=== PATIENT | female | born 1965 | race Caucasian/White ===

== ENCOUNTER → 2016-09-04 | Outpatient (CLI) | payer OTHER ==
[~2016-09-04] MED LIST: ALLEGRA60 MG PO; ATIVAN1 MG PO; CORGARD40 MG PO; LORAZEPAM; SYNTHROID75 MCG PO; TENORMIN50 MG PO; WELLBUTRIN
== END | disposition home or self-care (01) ==
LOC: NUC 07:58
DX: R10.11 Right upper quadrant pain (principal); R11.0 Nausea
CPT/HCPCS: 78226; A9537

== ENCOUNTER → 2017-08-29 | Outpatient (CLI) | payer OTHER ==
[~2017-08-29] MED LIST changes: +ALAWAY10 ML BOTH EYES; +ALLEGRA-D 241 TABLET PO; +ATIVAN0.5 MG PO; +BENTYL10 MG PO; +FLONASE16 G1 BOTH NARES; +HYDROCHLOROTHIA25 MG PO; +SELENIUM200 MCG PO; +VITAMIN D34000 UNIT PO
== END | disposition home or self-care (01) ==
LOC: CDC 09:54
DX: Z01.810 Encounter for preprocedural cardiovascular examination (principal); K81.1 Chronic cholecystitis; R94.31 Abnormal electrocardiogram [ECG] [EKG]
CPT/HCPCS: 93000

== ENCOUNTER 2017-09-05 12:14 | Day surgery (SDC) | payer OTHER ==
[~2017-09-05] VITALS: Ht 177.8 cm; Wt 80.7 kg
[2017-09-05 12:57] VITALS: BP 130/70
[2017-09-05] MEDS ORDERED: NORCO 5/3251 TABLET PO (18:13)
[2017-09-05 19:45] VITALS: BP 144/80
[2017-09-05 20:45] VITALS: BP 138/80
[2017-09-05 21:38] VITALS: BP 135/82
== END 2017-09-05 22:05 | disposition home or self-care (01) ==
LOC: SDC → 2SOUTH 21:27 → ENRESERV 21:31 → CANRESERV 21:42 → ENRESERV 21:42 → 2SOUTH 22:05
PROC: BF131ZZ Fluoroscopy of Gallbladder and Bile Ducts using Low Osmolar Contrast (ICD-10-PCS; principal; 2017-09-05)
PROC: 0FT44ZZ Resection of Gallbladder, Percutaneous Endoscopic Approach (ICD-10-PCS; principal; 2017-09-05)
DX: K80.10 Calculus of gallbladder with chronic cholecystitis without obstruction (principal); K21.0 Gastro-esophageal reflux disease with esophagitis; I10 Essential (primary) hypertension; E11.9 Type 2 diabetes mellitus without complications; E06.3 Autoimmune thyroiditis; F41.1 Generalized anxiety disorder; E78.5 Hyperlipidemia, unspecified; I25.10 Atherosclerotic heart disease of native coronary artery without angina pectoris; Z88.0 Allergy status to penicillin
CPT/HCPCS: 74300; 88304; G0378; J1170; J2250; J2405; J2765; J3010; Q0175; S0020; S0074